=== PATIENT | female | born 1945 | race Hispanic/Latino ===

== ENCOUNTER 2023-08-14 06:22 | Inpatient (IN) | payer MEDICARE ==
--- NOTE | 2023-08-08 15:03 | RAD REPORT ---
EXAM DESCRIPTION: RAD - Chest Pa And Lat (2 Views) - 08/08/2023 2:56 pm CLINICAL HISTORY: Pre op pending hip arthroplasty Chest pain. TECHNIQUE: PA and lateral views of the chest were obtained. FINDINGS: The lungs are hyperexpanded compatible with COPD. The heart is upper limit of normal in si ze. No fracture or aggressive bony process. IMPRESSION: COPD without acute process identified. The USPSTF recommends annual screening for lung cancer with low-dose CT (LDCT) in adults aged 50 to 8 0 years who have a 20 pack-year smoking history and currently smoke or have quit within the past 15 y ears.
[2023-08-08 15:17] LABS: Specific Gravity 1.012 (1.005-1.030); Urine Bilirubin NEGATIVE (Negative); Urine Blood Negative (Negative); Urine Clarity Clear (Clear); Urine Color Yellow (Yellow); Urine Glucose NEGATIVE (Negative); Urine Protein NEGATIVE (Negative); Urine Urobilinogen Normal (Normal); Urine pH 5.5 (5.0-7.0)
[2023-08-08 15:21] LABS: Absolute Lymphocytes (CBC) 1.1 K/uL (0.7-4.9); MCV 90.3 fL (80-100); MPV 7.5 fL (7.6-11.3); Platelets 287 thou/uL (152-406); RBC Red Blood Cell Count 3.87 M/uL (3.86-4.86)
[2023-08-08 15:39] LABS: Albumin 3.3 g/dL (3.4-5.0); Bilirubin Total 0.6 mg/dL (0.2-1.0); Potassium 3.9 mEq/L (3.5-5.1); Protein, Total 7.4 g/dL (6.4-8.2)
[2023-08-08 15:46] LABS: Protime INR 0.99
--- NOTE | 2023-08-09 16:28 | EKG ---
Test Date: 2023-08-08 Test Time: 15:17:11 Product Marketing Coordinator: WILLIAM MEASUREMENT RESULTS: Intervals: Rate: 67 CT: 146 QRSD: 86 QT: 402 QTc: 424 Norman: P: 46 CT: 146 QRS: -30 T: 65 INTERPRETIVE STATEMENTS: Normal sinus rhythm Left axis deviation Abnormal ECG No previous ECG available for comparison Electronically Signed On 08-09-23 16:26:00 ACID BATH MIXER by Dustin Thomas
[2023-08-14] MEDS: TRANEXAMIC ACID 1,000 MG/10 ML VIAL IV ONE (06:29)
[2023-08-14] MEDS: Ringers Lactate 1,000 ML IV ONE ×2 (06:45→09:24)
[2023-08-14] MEDS: MORPHINE SULFATE/PF 1 MG/ML (10 ML AMP) ONE (06:57)
[2023-08-14] MEDS: BUPIVACAINE 0.75% (PF) 2 ML SP ONE (06:59)
[2023-08-14] MEDS: GABAPENTIN 100 MG CAP ONE (07:00)
[2023-08-14] MEDS: CELECOXIB 100 MG CAPSULE ONE (07:00)
[2023-08-14] MEDS: ACETAMINOPHEN 500 MG TAB ONE (07:00)
[2023-08-14] MEDS: Oxycodone HCl/Acetaminophen 5/325 MG TAB ONE (07:00)
[2023-08-14] MEDS ORDERED: LIDOCAINE 1% MPF 5 ML VIAL ONE (07:04)
[2023-08-14] MEDS: CEFAZOLIN SODIUM 2 GM/VIAL ONE (07:05)
[2023-08-14] MEDS ORDERED: Phenylephrine HCl 10 MG/ML 1 ML VIAL ONE (07:08)
[2023-08-14] MEDS ORDERED: FENTANYL CITR 100 MCG/2 ML ONE (07:11)
[2023-08-14] MEDS ORDERED: MIDAZOLAM HCL 2 MG/2 ML INJ ONE (07:11)
[2023-08-14] MEDS ORDERED: propofoL 200 MG/20 ML VIAL IV ONE (07:17)
[2023-08-14] MEDS ORDERED: EPHEDRINE SULF 50 MG/ML VIAL ONE (07:29)
[2023-08-14] MEDS ORDERED: ONDANSETRON 4 MG/2 ML VIAL ONE (07:48)
[2023-08-14] MEDS ORDERED: dexAMETHasone 4 MG/ML VIAL ONE (07:48)
[2023-08-14] MEDS ORDERED: KETOROLAC 30 MG/ML INJ ONE (07:48)
--- NOTE | 2023-08-14 08:57 | RAD REPORT ---
EXAM DESCRIPTION: RAD - Hip Left 1 View - 08/14/2023 8:52 am CLINICAL HISTORY: LT TOTAL HIP COMPARISON: Hip Left 2 View dated 06/05/2023; Hip Left 2 View dated 05/12/2022 TECHNIQUE: Left hip, one view. FINDINGS: A left hip prothesis has been placed. Hardware is in good alignment, although the femoral head component has not yet been placed. Adjacent postsurgical changes in the soft tissues. Other meta llic surgical devices on the right. IMPRESSION: Intraoperative left hip radiograph as above.
[2023-08-14] MEDS ORDERED: DOCUSATE NA 100 MG CAP PO PRN (09:05)
[2023-08-14] MEDS ORDERED: ONDANSETRON 4 MG/2 ML VIAL IV PRN (09:05)
--- NOTE | 2023-08-14 09:05 | P.BOP ---
Preoperative diagnosis: left hip arthritis Postoperative diagnosis: same Primary procedure: left total hip arthoplasty Estimated blood loss: 100ccs Anesthesia: General Transferred to: Recovery Room Condition: Good
[2023-08-14 10:11] LABS: Hematocrit 30.5 % (36.0-45.0)
--- OUTSIDE RECORDS SUMMARY | 2023-08-14 10:17 | XMS REPORT | Continuity of Care Document ---
Author Name Unknown Address [address] [place] [address] [place] [address] thconnect Address [address] [place] [address] [address] [place] [address] Care Team Providers Care Inkjet Operator Name Role Phone Adams_R Attending Clinician Unavailable Lenore-Mbayo_A_AH Attending Clinician Unavailable Adams_R Admitting Clinician Unavailable Lenore-Mbayo_A_AH Admitting Clinician Unavailable Payers Payer Name Policy Type Policy Number Effective Date Expirati on Date Source [facility] (MEDICARE REPLACEMENT HMO) [id number] 2021 00:00:00 [facility]/[place] [employer] - HMO) [id number] 2019 00:00:00 Encounters Start Date/Time End Date/Time Encounter Type Admission Type Attending Clinicians Care Facility Care Department Encounter ID Source 2022-01-27 03:05:00 2022-01-27 03:05:00 Outpatient Adams_R [facility] DMG [id number] [facility] 2022-01-27 00:00:00 2022-01-27 00:00:00 Outpatient Adams_R DMG DMG [id number] [facility] 2021-11-09 04:09:00 2021-11-09 04:09:00 Outpatient Adams_R DMG DMG [id number] [facility] 2021-06-21 12:03:00 2021-06-21 12:03:00 Outpatient DMG DMG [id number] [facility] 2019-09-11 04:52:00 2019-09-11 04:52:00 [facility] [id number] 2019-09-11 04:52:00 2019-09-11 04:52:00 Outpatient Lenore-Mbayo _A_AH VFP VFP [id number] [facility] 2019-09-11 04:52:00 2019-09-11 04:52:00 Outpatient Lenore-Mbayo _A_AH VFP VFP [id number] [facility]
--- NOTE | 2023-08-14 12:45 | OP ---
Date of Procedure: 08/14/2023 Surgeon: Richard Fierro MD Preoperative Diagnosis: Left hip arthritis, probably from avascular necrosis. Postoperative Diagnosis: Left hip arthritis, probably from avascular necrosis. Procedure: Left total hip arthroplasty using the [place] system. Estimated Blood Loss: 100 cc. Complications: There were no complications. Indications For Operation: Ms. De La Rosa is a patient who came to see me with severe pain in her left hip . She has been dealing with this as much as she can for quite a long time, including problems with a mbulation. Now it is limiting her activities of daily living and ambulation to a great extent. X-ra ys demonstrated severe arthritic changes of the left hip, most likely associated with AVN. However, this was not completely confirmed, but definitely was very arthritic. Risks, benefits, and alternati ves of different methods of treating this have been discussed with the patient. She states she under stands things as presented and wishes to proceed with total hip arthroplasty. The risks associated w ith this were specifically addressed including the possibility of leg-length difference as well as ot her issues as outlined in the consent form as well as directly discussed. She says she understands t suadngs as presented, and wished to proceed. Description Of Procedure: The patient was taken to the operating room. A spinal anesthesia was obta ined by Anesthesia staff. Following this, a Lorenzana was placed. She was then rolled right side down a nd appropriately positioned using the hip positioners. After this, left lower extremity was then pre pped and draped in the usual sterile fashion for the procedure. A standard posterior lateral incisio n was then taken down carefully through skin only. Meticulous hemostasis being maintained using Bovi e electrocautery. This was then taken down through adipose tissue until the fascia was encountered. A small stab wound was made in the fascia and the gluteal tendon was palpated to ensure we were in c orrect position. The fascial incision was then taken up to near the tip of the greater trochanter. It was then curved gently backward and the gluteus thiago was then spread using finger pressure. Th e sciatic nerve was then identified and it was found to be lying superior to the external rotators an d it was carefully protected throughout the rest of the case. It was protected with placement of the Charnley. After this, the external rotators and capsule were then removed and tagged for later repa ir. The hip was then dislocated and a standard neck cut or slightly shorter than standard neck cut w as then performed. The head was then sized using ring gauges. The soft tissue was removed out from within the acetabulum and the labrum was then debrided. This then proceeds to sequential reaming up to a size 51 reamer, at which time we did have good bleeding bone. The cup was then placed to being a size 52 and felt to be extremely stable. After this, attention was then turned to the femur. tin cutter was used as well as canal finding reamer was then sequentially broached to a size 5. This abdulkadir eared to feel appropriate, and an x-ray was taken, which demonstrates that the cup appears to be in g ood position and I do not really think we can get a 6 in without causing possibility of other problem s. Therefore, decision was made to move forward with a 5. The broach was removed. The final stem w as then placed. It was then trialed with a standard. The standard does back fairly easily and is st able to flexion, adduction, and internal rotation to about 30 degrees. As she is 78 years old, I thi nk it would be better off if we place next longer which would be a +4. +4 is now extremely stable wi th full flexion, adduction, internal rotation over 45 degrees. She does still have a good extension. This maybe slightly long, but this is accepted for the protection against dislocation. After this was selected, the wound was carefully jet lavaged and cleaned and the final ball was then tapped onto the stem. It was then relocated, found to be stable in the above areas. It was again irrigated and external rotators and capsule were then repaired back to the greater trochanter and soft tissues via bone tunnels and directly to soft tissue. After this, it was again irrigated and the fascia was sherry sed in a watertight fashion using heavy Vicryl sutures. It was again slightly irrigated and the skin was closed using 2-0 Vicryl sutures followed by arpit. She was then placed in Aquacel dressing, awakened, and taken to recovery room in good condition. /IRASEMA Voice ID: [id number] Report ID: [id number]
--- NOTE | 2023-08-14 14:22 | P.CNS ---
Date of Consult: 08/14/23 Reason for Consult: Medical management Requesting Physician: Richard Fierro Chief Complaint: Left hip pain History of Present Illness: 78-year-old female presented to the hospital for an elective left total hip arthroplasty. She tolerated the procedure well and orthopedics has requested hospitalist consultation for medical management. Allergies No Known Allergies Allergy (Verified 08/08/23 13:54) Home Medications: Acetaminophen [Tylenol Extra Strength] 2 tab PO PRN PRN 08/08/23 Bimatoprost [Lumigan Opthalmic Drops] 1 drop EACH EYE BEDTIME 08/08/23 Calcium Carbonate/Vitamin D3 [Calcium 600 mg-Vit D3 10Mcg Tb] 1 each PO DAILY 08/08/23 Cholecalciferol (Vitamin D3) [Vitamin D3] 1,000 unit PO DAILY 08/08/23 Meloxicam 15 mg PO DAILYPRN PRN 08/08/23 Netarsudil Mesylate [Rhopressa] 1 drop EACH EYE BEDTIME 08/08/23 Vit C/E/Zn/Coppr/Lutein/Zeaxan [Preservision Areds 2 Softgel] 1 each PO DAILY 08/08/23 - Past Medical/Surgical History Diabetic: No -: arthritis -: Glaucoma -: Macular degeneration -: tubal ligation 1977 -: bilateral cataracts Psychosocial/ Personal History: Lives at home - Family History Mother Medical History: Lung disease Notes: passed age 87 Father Medical History: Lung disease Notes: passed age 67 - Social History Alcohol use: No CD- Drugs: No Caffeine use: Yes Place of Residence: Home Review of Systems 10-point ROS is otherwise unremarkable Musculoskeletal: Leg Pain (Left hip pain) Physical Examination Temp Pulse Resp BP Pulse Ox 97.2 F 66 15 118/68 95 08/14/23 12:00 08/14/23 12:00 08/14/23 12:00 08/14/23 12:00 08/14/23 12:00 General: Alert, In no apparent distress, Oriented x3 HEENT: Atraumatic, EOMI Neck: Supple Respiratory: Normal air movement Cardiovascular: No edema, Regular rate/rhythm Gastrointestinal: Non-distended Musculoskeletal: No tenderness Integumentary: No rashes Neurological: Normal speech Laboratory Data (last 24 hrs) 08/14/23 10:00 Hgb 10.5 L Hct 30.5 L Conclusions/Impression: Assessment: Severe left hip arthritis status post total left hip arthroplasty Glaucoma Macular degeneration Plan: Severe left hip arthritis status post total left hip arthroplasty Management per Ortho PT consult, plan for inpatient rehab Glaucoma Macular degeneration Continue home eyedrops DVT PPX: Per orthopedic surgery Code status: Full Critical Care: No Time Spent Managing Pts care (In Minutes): 30
[2023-08-14 15:05] VITALS: BMI 25.7
[2023-08-14 17:28] LABS: Hematocrit 28.9 % (36.0-45.0)
[2023-08-14] MEDS: CEFAZOLIN 1 GM in NA CHLORIDE 0.9% 50 ML IVPB SCH (18:17)
[2023-08-14] MEDS: BIMATOPROST OPTH SCH (21:00)
[2023-08-14] MEDS: NETARSUDIL MESYLATE OPTH SCH (21:00)
[2023-08-15] MEDS: FE SULF/FA/VIT B COMP & C TAB PO SCH (08:09)
[2023-08-15] MEDS: VITAMIN D 1000 UNIT TAB PO SCH (08:10)
[2023-08-15] MEDS: ENOXAPARIN 40 MG/0.4 ML SQ SCH (08:12)
[2023-08-15] MEDS: CALCIUM CARB 500MG/VIT D 200 IU TAB PO SCH (08:13)
[2023-08-15 08:44] LABS: Hematocrit 28.7 % (36.0-45.0)
[2023-08-15] MEDS ORDERED: [UNRECOGNIZED DRUG - OTHER] PO SCH (09:00)
[2023-08-15] MEDS ORDERED: VITAMIN D3 PO SCH (09:00)
[2023-08-15] MEDS ORDERED: HOME MED 1 EA UNK (Vit C/E/Zn/Coppr/Lutein/Zeaxan [Preservision Areds 2 Softgel] Capsule) PO SCH (09:00)
[2023-08-15] MEDS ORDERED: CALCIUM CARBONATE PO SCH (09:00)
[2023-08-15] MEDS ORDERED: HOME MED 1 EA UNK (Cholecalciferol (Vitamin D3) [Vitamin D3] 1,000 UNIT Capsule) PO SCH (09:00)
[2023-08-15] MEDS: HYDROCODONE/APAP 7.5/325 MG TAB PO PRN (09:17)
[2023-08-15] MEDS: OCUVITE (VIT A,C & E/LUTEIN/MINERAL) TABLET PO SCH (10:15)
--- NOTE | 2023-08-15 14:24 | P.PN ---
Date of Service: 08/15/23 Subjective: Pain well-controlled No acute events overnight Working well with physical therapy ROS: 10 point ROS as noted above, otherwise negative Physical exam GEN: Alert, oriented, NAD HEENT: Normal conjunctiva, sclera anicteric CV: Regular rate and rhythm, no edema Pulm: Nonlabored respirations on room air ABD: Soft, nontender, nondistended MSK: No joint tenderness Integumentary: No rashes Neuro: Normal speech, normal affect Vitals reviewed Assessment: Severe left hip arthritis status post total left hip arthroplasty Glaucoma Macular degeneration Plan: Severe left hip arthritis status post total left hip arthroplasty Management per Ortho director agricultural services working with patient to determine disposition Patient wishes for inpatient rehab Glaucoma Macular degeneration Continue home eyedrops DVT PPX: Per orthopedic surgery Code status: Riddler Operator Spent Managing Pts Care (In Minutes): 20
--- NOTE | 2023-08-16 11:27 | P.PN ---
Date of Service: 08/16/23 Subjective: Pain well-controlled No acute events overnight Working well with physical therapy ROS: 10 point ROS as noted above, otherwise negative Physical exam GEN: Alert, oriented, NAD HEENT: Normal conjunctiva, sclera anicteric CV: Regular rate and rhythm, no edema Pulm: Nonlabored respirations on room air ABD: Soft, nontender, nondistended MSK: No joint tenderness Integumentary: No rashes Neuro: Normal speech, normal affect Vitals reviewed Assessment: Severe left hip arthritis status post total left hip arthroplasty Glaucoma Macular degeneration Plan: Severe left hip arthritis status post total left hip arthroplasty Management per Ortho director patient financial services working with patient to determine disposition Patient wishes for inpatient rehab working well with PT Glaucoma Macular degeneration Continue home eyedrops DVT PPX: Per orthopedic surgery Code status: Stock Taker Spent Managing Pts Care (In Minutes): 20
--- NOTE | 2023-08-17 09:07 | P.PN ---
Date of Service: 08/17/23 Subjective: hasn't had a BM since before admission, no nausea/vomiting Left leg pain slowly improving. worsened with movement / ambulating Doesn't feel safe going home where she lives alone. Currently states nursing staff helping her up to bathroom. no acute events overnight afebrile ROS: 10 point ROS as noted above, otherwise negative Physical Exam: GEN: Alert, oriented, NAD HEENT: Normal conjunctiva, sclera anicteric, CV: Regular rate and rhythm, no edema Pulm: Nonlabored respirations on room air, clear bilaterally ABD: soft, nontender, nondistended Neuro: Normal speech, normal affect Problem List: Severe left hip arthritis s/p total left hip arthroplasty (08/14) Constipation Glaucoma Macular degeneration Severe left hip arthritis s/p total left hip arthroplasty (08/14) Patient underwent left hip arthroplasty 08/[address] Fierro Management per ortho continue anticoagulation for 3 weeks post operatively, then switch to PO ASA 325 mg (09/05/23) for 3 more weeks arpit to be removed 10-14 days post op. f/u in office in ~2 weeks PRN analgesics / antiemetics Patient wishes for inpatient rehab. Doesn't feel safe going home where she lives alone. IPR [id number] denied 08/16. ss/cm working to determine dispo - IPR / SNF working well with PT Constipation Hasn't had BM since before admission per patient. not sure if she passed flatus doesn't feel bloated, no nausea/vomiting PRN colace switched to scheduled (08/17) consider laxative if no / minimal improvement Glaucoma Macular degeneration Continue home eyedrops VTE: Lovenox Code: Full Dispo: per ortho - IPR [id number] denied; Pending appeal vs SNF; cleared from medical standpoint for discharge
[2023-08-17] MEDS: DOCUSATE NA 100 MG CAP PO SCH (09:47)
[2023-08-18 05:23] LABS: Hematocrit 26.5 % (36.0-45.0)
--- NOTE | 2023-08-18 09:27 | P.PN ---
Date of Service: 08/18/23 Subjective: Left leg pain continues to improve each day denies any new / worsening problems reports had BM ~2 days ago psychiatric social worker supervisor looking into dispo options afebrile ROS: 10 point ROS as noted above, otherwise negative Physical Exam: GEN: Alert, oriented, NAD HEENT: Normal conjunctiva, sclera anicteric, CV: Regular rate and rhythm, no edema Pulm: Nonlabored respirations on room air, clear bilaterally ABD: soft, nontender, nondistended Neuro: Normal speech, normal affect Problem List: Severe left hip arthritis s/p total left hip arthroplasty (08/14) Constipation Glaucoma Macular degeneration Severe left hip arthritis s/p total left hip arthroplasty (08/14) Patient underwent left hip arthroplasty 08/[address] Fierro Management per ortho continue anticoagulation for 3 weeks post operatively, then switch to PO ASA 325 mg (09/05/23) for 3 more weeks arpit to be removed 10-14 days post op. f/u in office in ~2 weeks PRN analgesics / antiemetics Patient wishes for inpatient rehab. Doesn't feel safe going home where she lives alone. IPR [id number] denied 08/16. ss/cm working to determine dispo - SNF working well with PT Constipation doesn't feel bloated, no nausea/vomiting Reports having BM ~2 days ago continue colace daily Glaucoma Macular degeneration Continue home eyedrops VTE: Lovenox Code: Full Dispo: per ortho - IPR [id number] denied; appeal denied. Working on SNF cleared from medical standpoint for discharge
[2023-08-19 05:06] LABS: Magnesium 2.2 mg/dL (1.6-2.4)
--- NOTE | 2023-08-19 08:51 | P.PN ---
Date of Service: 08/19/23 Subjective: hip pain improving slowly, More tolerable with current pain regimen ambulating with assistance and RW denies any lower extremity swelling / numbness / tingling +headache ROS: 10 point ROS as noted above, otherwise negative Physical Exam: GEN: Alert, oriented, NAD HEENT: Normal conjunctiva, sclera anicteric, CV: Regular rate and rhythm, no edema Pulm: Nonlabored respirations on room air, clear bilaterally Neuro: Normal speech, normal affect MSK: left leg intact distal sensation, slight limited ROM at hip from pain, no significant swelling Problem List: Severe left hip arthritis s/p total left hip arthroplasty (08/14) Constipation Glaucoma Macular degeneration Severe left hip arthritis s/p total left hip arthroplasty (08/14) Patient underwent left hip arthroplasty 08/[address] Fierro Management per ortho continue anticoagulation for 3 weeks post operatively, then switch to PO ASA 325 mg (09/05/23) for 3 more weeks arpit to be removed 10-14 days post op. f/u in office in ~2 weeks PRN analgesics / antiemetics Patient wishes for inpatient rehab. Doesn't feel safe going home where she lives alone. IPR [id number] denied 08/16. ss/cm working to determine dispo - SNF working well with PT Constipation doesn't feel bloated, no nausea/vomiting Reports having BM few days ago continue colace daily Glaucoma Macular degeneration Continue home eyedrops VTE: Lovenox Code: Full Dispo: per ortho - IPR [id number] denied; appeal denied. Working on SNF cleared from medical standpoint for discharge
[2023-08-20 08:01] LABS: Hematocrit 27.5 % (36.0-45.0)
--- NOTE | 2023-08-20 18:09 | P.PN ---
Subjective Date of Service: 08/20/23 Chief Complaint: Left hip pain Patient has no new complaint. She is ambulating with therapy. No issues overnight. She states her pain is well-controlled. Physical Examination - Vital Signs Temperature: 98 F Blood Pressure: 130/61 Pulse: 92 Respirations: 18 Pulse Ox (%): 96 - Studies Laboratory Data (last 24 hrs) 08/20/23 07:20 Hgb 9.3 L Hct 27.5 L Assessment And Plan - Plan Physical Exam: GEN: Alert, oriented, NAD HEENT: Normal conjunctiva, sclera anicteric, CV: Regular rate and rhythm, no edema Pulm: clear to auscultation bilaterally Neuro: Normal speech, normal affect Problem List: Severe left hip arthritis s/p total left hip arthroplasty (08/14) Constipation Glaucoma Macular degeneration Severe left hip arthritis s/p total left hip arthroplasty (08/14) Patient underwent left hip arthroplasty 08/[address] Fierro continue anticoagulation for 3 weeks post operatively, then switch to PO ASA 325 mg (09/05/23) for 3 more weeks per Ortho recommendation arpit to be removed 10-14 days post op. f/u with Ortho office in ~2 weeks PRN analgesics / antiemetics Patient was denied inpatient rehab. SW assisting with arrangement for skilled rehab placement pending insurance authorization. Continue PT Constipation continue colace daily Glaucoma Macular degeneration Continue home eyedrops VTE: Lovenox Code: Full Dispo: SNF. cleared from medical standpoint for discharge
[2023-08-21 07:07] LABS: Hematocrit 29.6 % (36.0-45.0)
--- NOTE | 2023-08-21 15:04 | P.PN ---
Subjective Date of Service: 08/21/23 Chief Complaint: Left hip pain Patient denies any new complaint She is ambulating with rolling walker. Physical Examination - Vital Signs Temperature: 97.7 F Blood Pressure: 120/75 Pulse: 107 Respirations: 20 Pulse Ox (%): 95 - Studies Laboratory Data (last 24 hrs) 08/21/23 06:35 Hgb 10.0 L Hct 29.6 L Assessment And Plan - Plan Physical Exam: GEN: Alert, oriented, NAD HEENT: Normal conjunctiva, sclera anicteric, CV: Regular rate and rhythm, no edema Pulm: clear to auscultation bilaterally Neuro: Normal speech, normal affect Problem List: Severe left hip arthritis s/p total left hip arthroplasty (08/14) Constipation Glaucoma Macular degeneration Severe left hip arthritis s/p total left hip arthroplasty (08/14) Patient underwent left hip arthroplasty 08/[address] Fierro continue anticoagulation for 3 weeks post operatively, then switch to PO ASA 325 mg (09/05/23) for 3 more weeks per Ortho recommendation f/u with Ortho office in ~2 weeks PRN analgesics / antiemetics Patient was denied inpatient rehab. SW assisting with arrangement for skilled rehab placement pending insurance authorization. Continue PT Constipation continue colace daily Glaucoma Macular degeneration Continue home eyedrops VTE: Lovenox Code: Full Dispo: SNF. cleared from medical standpoint for discharge
[2023-08-21 21:51] VITALS: O2SAT 94
[2023-08-22 11:30] VITALS: BP 122/60; TEMP 97
--- NOTE | 2023-08-22 15:04 | P.DS ---
Admission Date: 08/16/23 Discharge Date: 08/22/23 Disposition: TRANSFER TO SNF - REHAB Discharge Condition: FAIR Reason for Admission: Left hip pain Brief History of Present Illness: 78-year-old female presented to the hospital for an elective left total hip arthroplasty. She tolerated the procedure done by Dr. Fierro. Hospitalist service was consulted for management of her medical issues. Hospital Course: The following medical problems were addressed during the hospital stay Diagnosis Severe left hip arthritis s/p total left hip arthroplasty (08/14) Constipation Glaucoma Macular degeneration Severe left hip arthritis s/p total left hip arthroplasty (08/14) Patient underwent left hip arthroplasty 08/[address] Fierro Patient placed on Lovenox for anticoagulation as inpatient. Dr. Harvey recommended anticoagulation(lovenox/Eliquis) for 3 weeks post operatively, then switch to PO ASA 325 mg (09/05/23) for 3 more weeks. f/u with Ortho office in 2 weeks Patient managed with PRN analgesics / antiemetics Patient was denied inpatient rehab. She has been accepted to SNF with full skilled rehab. Constipation Managed with colace daily Glaucoma Macular degeneration Continued home eyedrops. Vital Signs/Physical Exam: Temp Pulse Resp BP Pulse Ox 97.0 F 91 H 16 122/60 94 08/22/23 11:24 08/22/23 11:24 08/22/23 11:24 08/22/23 11:24 08/22/23 11:24 General: Alert, In no apparent distress, Oriented x3 HEENT: Mucous membr. moist/pink Neck: Supple, JVD not distended Respiratory: Clear to auscultation bilaterally, Normal air movement Cardiovascular: No edema, Regular rate/rhythm, Normal S1 S2 Gastrointestinal: Normal bowel sounds, Soft and benign, Non-distended, No tender ness Musculoskeletal: No swelling Integumentary: No rashes, No cyanosis Neurological: Normal strength at 5/5 x4 extr Laboratory Data at Discharge: WBC 5.10 thou/uL (4.3-10.9) 08/08/23 14:30 Hgb 10.0 g/dL (12.0-15.0) L 08/21/23 06:35 Hct 29.6 % (36.0-45.0) L 08/21/23 06:35 Plt Count 287 thou/uL (152-406) 08/08/23 14:30 PT 10.9 SECONDS (9.5-12.5) 08/08/23 14:30 INR 0.99 08/08/23 14:30 APTT 29.4 SECONDS (24.3-36.9) 08/08/23 14:30 Sodium 138 mEq/L (136-145) 08/19/23 03:43 Potassium 4.0 mEq/L (3.5-5.1) 08/19/23 03:43 BUN 15 mg/dL (7-18) 08/19/23 03:43 Creatinine 0.65 mg/dL (0.55-1.02) 08/19/23 03:43 Glucose 108 mg/dL (74-106) H 08/19/23 03:43 Magnesium 2.2 mg/dL (1.6-2.4) 08/19/23 03:43 Total Bilirubin 0.6 mg/dL (0.2-1.0) 08/08/23 14:30 AST 20 U/L (15-37) 08/08/23 14:30 ALT 31 U/L (13-56) 08/08/23 14:30 Alkaline Phosphatase 88 U/L (45-117) 08/08/23 14:30 Home Medications: Bimatoprost [Lumigan Opthalmic Drops*] 1 drop EACH EYE BEDTIME 08/08/23 Calcium Carbonate/Vitamin D3 [Calcium 600 mg-Vit D3 10Mcg Tb] 1 each PO DAILY 08/08/23 Cholecalciferol (Vitamin D3) [Vitamin D3] 1,000 unit PO DAILY 08/08/23 Netarsudil Mesylate [Rhopressa] 1 drop EACH EYE BEDTIME 08/08/23 Vit C/E/Zn/Coppr/Lutein/Zeaxan [Preservision Areds 2 Softgel] 1 each PO DAILY 08/08/23 Apixaban [Eliquis] 2.5 mg PO BID #30 tablet 08/22/23 Aspirin [Aspirin EC 325 MG] 325 mg PO DAILY #21 tab 08/22/23 Docusate [Colace Cap*] 200 mg PO DAILY #0 cap 08/22/23 Hydrocodone 7.5/APAP 325 [Walton 7.5/325 mg*] 2 tab PO Q4H PRN #20 tab 08/22/23 Iron/FA/Vit B-Com W/C [Hemocyte Plus*] 1 tab PO DAILY WITH BREAKFAST tab 08/22/23 New Medications: Aspirin [Aspirin EC 325 MG] 325 mg PO DAILY #21 tab Apixaban [Eliquis] 2.5 mg PO BID #30 tablet Hydrocodone 7.5/APAP 325 [Walton 7.5/325 mg*] 2 tab PO Q4H PRN #20 tab PRN Reason: Pain Scale 8-10 (Severe) Physician Discharge Instructions: Left total hip replacement was performed by Dr. Fierro. Dr. Fierro recommend blood thinner-Eliquis for 3 weeks followed by aspirin for 3 weeks to prevent you from developing a blood clot in your leg. Your hemoglobin dipped as a result of the surgery but picked up and now up to 10. Dr. Fierro would like you to follow-up with him in the office within 2 to 3 weeks. Your sutures need to be removed on day 14. You may bear weight on your left leg as tolerated. Diet: AHA Activity: Fall precautions Followup: Alfred Yang MD [Primary Care Provider] - 1 Week Richard Fierro MD [ACTIVE - CAN ADMIT] - (call for an apointment for 2 weeks after surgery) Time spent managing pt's care (in minutes): 34
== END 2023-08-22 16:30 | DRG 470 ==
LOC: OR 06:22 → 4TH 09:05 → 2ND 11:40 → OBSVTOIN 08-16 19:54
PROVIDERS: ADMIT Orthopaedic Surgery; ATTEND Orthopaedic Surgery
PROC: 0SRB01Z Replacement of Left Hip Joint with Metal Synthetic Substitute, Open Approach (ICD-10-PCS; principal; 2023-08-14 07:00)
DX: M13.852 Other specified arthritis, left hip (principal); M87.9 Osteonecrosis, unspecified; H40.9 Unspecified glaucoma; H35.30 Unspecified macular degeneration; K59.00 Constipation, unspecified; Z98.51 Tubal ligation status; Z60.2 Problems related to living alone; Z79.82 Long term (current) use of aspirin; Z79.01 Long term (current) use of anticoagulants; Z79.899 Other long term (current) drug therapy; Z90.710 Acquired absence of both cervix and uterus
CPT/HCPCS: 36415; 71046; 80048; 80053; 81003; 83735; 85014; 85018; 85025; 85610; 85730; 88304; 88311; 93005; 94760; 97110; 97116; 97161; 97165; 97530; C1776; G0378; G0379; J0690; J1100; J1650; J2001; J2250; J2371; J2405; J2704; J3010; J7120